=== PATIENT | female | born 1975 | race Caucasian/White ===

== ENCOUNTER 2017-02-06 19:09 | Emergency (ER) | payer MEDICAID ==
[~2017-02-06] VITALS: Ht 175.3 cm; Wt 70.2 kg
[2017-02-06 19:14] VITALS: BP 151/102
[2017-02-06] MEDS ORDERED: FLUORESCEIN OPHTHALMIC 1 MG STRIP ONE (19:23)
[2017-02-06] MEDS ORDERED: PROPARACAINE OPHTH 0.5%, 15ML ONE (19:23)
[2017-02-06] MEDS ORDERED: FLUORESCEIN OPHTHALMIC 1 MG STRIP EACHEYE ONE (19:30)
[2017-02-06] MEDS ORDERED: PROPARACAINE OPHTH 0.5%, 15ML EACHEYE ONE (19:30)
== END 2017-02-06 20:26 | disposition home or self-care (01) ==
LOC: ED 20:20
DX: B30.9 Viral conjunctivitis, unspecified (principal); I10 Essential (primary) hypertension; I25.2 Old myocardial infarction
CPT/HCPCS: 99283

== ENCOUNTER 2018-06-30 13:41 | Emergency (ER) | payer MEDICAID ==
[2018-06-30 13:55] VITALS: BP 174/105
[2018-06-30] MEDS ORDERED: LORazepam 1MG TABLET ONE (13:59)
[2018-06-30] MEDS ORDERED: LORazepam 1MG TABLET PO ONE (14:00)
== END 2018-06-30 14:28 | disposition home or self-care (01) ==
LOC: ED 14:22
DX: S00.01XA Abrasion of scalp, initial encounter (principal); F41.1 Generalized anxiety disorder; I10 Essential (primary) hypertension; Y04.8XXA Assault by other bodily force, initial encounter; Y93.89 Activity, other specified; Y99.8 Other external cause status; Y92.89 Other specified places as the place of occurrence of the external cause
CPT/HCPCS: 99282; 99283

== ENCOUNTER 2019-01-03 03:58 | Emergency (ER) | payer MEDICAID ==
[~2019-01-03] VITALS: Ht 175.3 cm; Wt 78.3 kg
[2019-01-03 04:00] VITALS: BP 152/102
--- NOTE | 2019-01-03 04:13 | NUR ---
JILLIAN AMBROCIO IN TO PRITI PTAnirudh AND DISCUSS POC.
[2019-01-03] MEDS ORDERED: ACYCLOVIR 400 MG TABLET PO ONE (04:30)
[2019-01-03 05:21] LABS: CLUE CELLS NONE SEEN (NONE SEEN); WET PREP WBCS FEW (FEW)
== END 2019-01-03 05:43 | disposition home or self-care (01) ==
LOC: ED 05:25
DX: A60.04 Herpesviral vulvovaginitis (principal)
CPT/HCPCS: 87210; 87491; 87591; 87808; 99283

== ENCOUNTER 2019-01-22 11:20 | Emergency (ER) | payer MEDICAID ==
[~2019-01-22] VITALS: Ht 175.3 cm; Wt 76.0 kg
[2019-01-22 11:23] VITALS: BP 159/107
== END 2019-01-22 12:39 | disposition home or self-care (01) ==
LOC: ED 12:29
DX: H69.83 Other specified disorders of Eustachian tube, bilateral (principal); B34.9 Viral infection, unspecified; I10 Essential (primary) hypertension; F41.1 Generalized anxiety disorder; I25.2 Old myocardial infarction
CPT/HCPCS: 99283